=== PATIENT | male | born 1970 | race Caucasian/White ===

== ENCOUNTER 2019-06-08 18:29 | Emergency (ER) | payer MEDICARE, OTHER ==
[~2019-06-08] VITALS: Ht 177.8 cm; Wt 79.4 kg
--- NOTE | 2019-06-08 18:35 | NUR ---
MAURO HAINES 88 From Home "Using [employer] last time was 45min ago now feeling anxoius". to ER bed 12, hooked to monitor, changed to hosp gown, awaiting MD watkins.
--- NOTE | 2019-06-08 18:51 | NUR ---
DR SPEARS AT BEDSIDE
[2019-06-08] MEDS ORDERED: LORAZEPAM INJ 2 MG/ML VIAL IM ONE ×2 (19:00→21:30)
[2019-06-08] MEDS ORDERED: LORAZEPAM INJ 2 MG/ML VIAL ONE ×2 (19:00→21:27)
[2019-06-08 19:21] LABS: BASOPHILS # (AUTO) 0.1 /CMM (0.0-0.2); BASOPHILS % (AUTO) 1.3 % (0.0-2.0); HEMATOCRIT 40 % (39-51); HEMOGLOBIN 13.8 g/dL (13.5-17.5); LYMPHOCYTES # (AUTO) 1.2 /CMM (0.8-4.8); LYMPHOCYTES % (AUTO) 13.1 % (20.0-44.0); MEAN CORPUSCULAR HGB CONC 34 g/dl (31.0-36.0); MEAN CORPUSCULAR VOLUME 89 fL (80-96); MONOCYTES # (AUTO) 0.7 /CMM (0.1-1.30); MONOCYTES % (AUTO) 7.5 % (2.0-12.0); NEUTROPHILS % (AUTO) 77.1 % (43.0-81.0); PLATELET COUNT (AUTO) 308 /CMM (150-450); RED BLOOD CELL COUNT(AUTO) 4.49 MIL/uL (4.5-6.0); WHITE BLOOD COUNT (AUTO) 9.1 K/uL (4.3-11.0)
[2019-06-08 19:34] LABS: CALCIUM, SERUM 9.5 mg/dL (8.5-10.1); CARBON DIOXIDE 27 mmol/L (21-32); CHLORIDE 101 mmol/L (98-107); CREATININE 1.2 mg/dL (0.6-1.3); GLUCOSE 112 mg/dL (74-106); POTASSIUM 3.2 mmol/L (3.5-5.1); SODIUM SERUM 139 mmol/L (136-145); UREA NITROGEN, BLOOD 23 mg/dL (7-18)
[2019-06-08 19:44] LABS: ALANINE AMINOTRANSFERASE 50 U/L (12-78); ALBUMIN 4.5 g/dL (3.4-5.0); ALCOHOL, BLOOD < 3 mg/dL (0-0); ALKALINE PHOSPHATASE 45 U/L (46-116); ASPARTATE AMINOTRANSFERASE 57 U/L (15-37); BILIRUBIN,DIRECT 0.2 mg/dL (0.0-0.2); TOTAL PROTEIN, SERUM 7.4 g/dL (6.4-8.2)
[2019-06-08 19:47] LABS: ACETAMINOPHEN 0 ug/ml (10-30); SALICYLATE 0.7 mg/dL (2.8-20.0)
--- NOTE | 2019-06-08 21:16 | NUR ---
PATIENT IN BED, STILL FEELS ANXIOUS. MADE MD AWARE
[2019-06-08] MEDS ORDERED: OLANZAPINE 10 MG VIAL IM ONE ×2 (21:26→21:30)
--- NOTE | 2019-06-08 21:29 | NUR ---
URINE COLLECTED AND SENT TO LAB.
[2019-06-08 22:08] LABS: APPEARANCE,URINE Clear (CLEAR); BILIRUBIN,URINE SMALL (NEGATIVE); BLOOD, URINE Trace-lysed Ery/uL (NEGATIVE); COLOR,URINE Yellow (YELLOW); KETONES,URINE 40 (NEGATIVE); LEUKOCYTE ESTERASE ,URINE Negative (NEGATIVE); NITRITE, URINE Negative (NEGATIVE); PROTEIN,URINE 30 mg/dl (NEGATIVE); UGLUCOSE Negative (NEGATIVE); UROBILINOGEN,URINE 0.2 EU/dL (0.2)
[2019-06-08 22:54] LABS: BACTERIA,URINE None seen /HPF (None Seen); RBC,URINE 0-2 /HPF (0-2); SQUAMOUS EPITHELIAL CELL,UR Few /HPF (None Seen); WBC,URINE 0-2 /HPF (0-3)
--- NOTE | 2019-06-08 22:54 | NUR ---
PATIENT ASLEEP IN BED, HOOKED TO MONITOR, WILL CONTINUE TO MONITOR ACCORDINGLY. KEPT SAFE AND COMFORTABLE
--- NOTE | 2019-06-08 23:39 | NUR ---
REPORT GIVEN TO CARLOS العراقي FOR TANMAY
--- NOTE | 2019-06-09 01:07 | NUR ---
Patient is resting comfortably in bed. Easily aroused. VSS.
--- NOTE | 2019-06-09 04:21 | NUR ---
PT AMBULATORY TO THE BATHROOM WITH STEADY GAIT NOTED. PT AAOX4 NO ACUTE DISTRESS NOTED, RESP EVEN AND UNLABORED. PT REMAINS CALM AND COOPERATIVE AT THIS TIME. WILL CONTINUE TO MONITOR PT CLOSELY. `PT DENIES SI/HI AT THIS TIME. ER MD TORRES AWARE.
--- NOTE | 2019-06-09 04:39 | NUR ---
BREANN RASHEED AT BEDSIDE TO RE-EVAL PT.
--- NOTE | 2019-06-09 05:52 | NUR ---
Patient discharged to home in stable condition. Written and verbal after care instructions given. Patient verbalizes understanding of instruction. ambulatory with a steady gait noted. ambulatory with a steady gait noted. pt aaox4 no acute distress noted, resp even and unlabored. pt deneis si or hi at this time. advice pt not to drive or operate any machinery due to drug use. pt verbalize understanding.
[2019-06-09 05:53] VITALS: BP 121/62
== END 2019-06-09 05:54 | disposition home or self-care (01) ==
LOC: ER 18:30
DX: F23 Brief psychotic disorder (principal); F15.10 Other stimulant abuse, uncomplicated; R00.0 Tachycardia, unspecified; F60.0 Paranoid personality disorder; E87.6 Hypokalemia; F41.9 Anxiety disorder, unspecified; R45.1 Restlessness and agitation
CPT/HCPCS: 36415; 80048; 80076; 80305; 80307; 80329; 81001; 85025; 96372 ×3; 99285; G0480; J2060 ×2; J3490; 81000-TC